=== PATIENT | male | born 1980 | race African-American/Black ===

== ENCOUNTER 2017-03-04 16:09 | Emergency (ER) | payer BC ==
[2017-03-04 16:46] LABS: #Basophils 0.1 thou/uL (0.0-0.2); #Eosinphils 0.1 thou/uL (0.0-0.7); #Lymphocytes 2.1 thou/uL (1.20-3.40); #Monocytes 0.6 thou/uL (0.11-0.59); %Eosinophils 1.3 % (0.0-10.0); %Lymphocytes 21.3 % (21.0-51.0); %Monocytes 6.1 % (0.0-10.0); %Neutrophils 70.3 % (42.0-75.0); Hemoglobin 15.3 g/dL (14.0-18.0); Mean Corpuscular HGB CONC 34.7 g/dL (32.0-36.0); Mean Corpuscular Hemoglobin 30.5 pg (27.0-31.0); Mean Corpuscular Volume 87.8 fl (80.0-94.0); Mean Platelet Volume 6.7 fL (7.4-10.4); Platelet Count 297 thou/uL (130-400); RBC Distribution Width 11.8 % (11.5-14.5); Red Blood Cell (RBC) Count 5.01 mill/uL (4.70-6.10)
[2017-03-04 17:03] LABS: ALT (SGPT) 31 U/L (8-55); AST (SGOT) 27 U/L (5-34); Albumin 4.2 g/dL (3.5-5.0); Alkaline Phosphatase 60 U/L (40-150); Anion Gap 16 mmol/L (10-20); BUN (Urea Nitrogen) 13 mg/dL (8.9-20.6); Bilirubin, Total 0.8 mg/dL (0.2-1.2); Calc. Creatinine Clearance 0 mL/min (70-130); Calcium 9.2 mg/dL (7.8-10.44); Carbon Dioxide 24 mmol/L (22-29); Chloride 104 mmol/L (98-107); Estimated GFR-MDRD Greater than 90; Globulin 2.6 g/dL (2.4-3.5); Glucose 229 mg/dL (70-105); Potassium 3.6 mmol/L (3.5-5.1); Protein, Total 6.8 g/dL (6.0-8.3); Sodium 140 mmol/L (136-145)
[2017-03-04 20:24] LABS: CRP (Inflammatory) Less than 0.50 mg/dL (= or < 0.5)
--- NOTE | 2017-03-04 22:13 | RAD ---
LEFT FOOT THREE VIEW 03/04/17 No fracture was seen. No area of bony destruction was present. Slight pes planus was noted. IMPRESSION: No acute bony finding. POS: HOME
== END 2017-03-04 17:55 | disposition home or self-care (01) ==
LOC: BURERS 16:09
DX: E11.621 Type 2 diabetes mellitus with foot ulcer (principal); L03.116 Cellulitis of left lower limb; Z79.84 Long term (current) use of oral hypoglycemic drugs; Z79.899 Other long term (current) drug therapy
CPT/HCPCS: 80053; 85025; 85652; 86140; 87040

== ENCOUNTER 2018-06-01 08:43 | Emergency (ER) | payer BC, SELFPAY ==
[2018-06-01] MEDS ORDERED: Piperacillin/Tazobactam 3.375 GM VIAL ONE (09:23)
[2018-06-01] MEDS ORDERED: Sodium Chloride 0.9% 100 ML ONE (09:24)
[2018-06-01 09:38] LABS: #Basophils 0.1 thou/uL (0.0-0.2); #Eosinphils 0.2 thou/uL (0.0-0.7); #Lymphocytes 1.6 thou/uL (1.20-3.40); #Monocytes 0.7 thou/uL (0.11-0.59); #Neutrophils 8.1 thou/uL (1.40-6.50); %Eosinophils 2.2 % (0.0-10.0); %Lymphocytes 14.7 % (21.0-51.0); %Monocytes 6.3 % (0.0-10.0); %Neutrophils 75.8 % (42.0-75.0); Hemoglobin 13.4 g/dL (14.0-18.0); Mean Corpuscular HGB CONC 34.2 g/dL (32.0-36.0); Mean Corpuscular Hemoglobin 28.2 pg (27.0-31.0); Mean Corpuscular Volume 82.3 fL (78.0-98.0); Mean Platelet Volume 6.3 fL (7.4-10.4); Platelet Count 568 thou/uL (130-400); RBC Distribution Width 10.7 % (11.5-14.5); Red Blood Cell (RBC) Count 4.77 mill/uL (4.70-6.10); White Blood Cell (WBC) Count 10.7 thou/uL (4.8-10.8)
[2018-06-01 09:53] LABS: ALT (SGPT) 27 U/L (8-55); AST (SGOT) 17 U/L (5-34); Alkaline Phosphatase 80 U/L (40-150); Anion Gap 12 mmol/L (10-20); BUN (Urea Nitrogen) 9 mg/dL (8.9-20.6); Bilirubin, Total 0.5 mg/dL (0.2-1.2); Calc. Creatinine Clearance 0 mL/min (70-130); Calcium 9.6 mg/dL (7.8-10.44); Carbon Dioxide 28 mmol/L (22-29); Chloride 103 mmol/L (98-107); Estimated GFR-MDRD Greater than 90; Globulin 3.7 g/dL (2.4-3.5); Glucose 246 mg/dL (70-105); Potassium 3.8 mmol/L (3.5-5.1); Protein, Total 7.7 g/dL (6.0-8.3); Sodium 139 mmol/L (136-145)
--- NOTE | 2018-06-01 11:45 | RAD ---
LEFT FOOT 3 VIEWS: Date: 06/01/18 Comparison is made with the prior study of 03/04/17. FINDINGS: In the interval, there has occurred an area of bony destruction in the distal end of the proximal pha lanx of the fourth toe. Osteomyelitis is presumed. Soft tissue swelling is seen in the forefoot. The other bony structures appeared intact. IMPRESSION: Osseous destruction of the distal end of the proximal phalanx of the fourth toe. Osteomyelitis is pre sumed given the clinical presentation. Findings discussed with Dr. Parra at approximately 0935 hours. CODE CR. POS: HOME
== END 2018-06-01 11:13 | disposition short-term general hospital (02) ==
LOC: BURERS 08:43
DX: L03.116 Cellulitis of left lower limb (principal); M86.9 Osteomyelitis, unspecified; E11.9 Type 2 diabetes mellitus without complications; I10 Essential (primary) hypertension; Z79.899 Other long term (current) drug therapy; Z79.84 Long term (current) use of oral hypoglycemic drugs
CPT/HCPCS: 36415; 80053; 83605; 85025; 87040; 96365; 96367; J2543; J3370; J7050

== ENCOUNTER 2019-03-26 16:27 | Emergency (ER) | payer OTHER, SELFPAY | END 2019-03-26 17:20 | disposition home or self-care (01) | LOC: BURERS 16:27 | DX: E11.65 Type 2 diabetes mellitus with hyperglycemia (principal); R51 Headache; I10 Essential (primary) hypertension; F17.210 Nicotine dependence, cigarettes, uncomplicated; Z79.84 Long term (current) use of oral hypoglycemic drugs; Z79.899 Other long term (current) drug therapy | CPT/HCPCS: 36416; 99284 ==

== ENCOUNTER 2021-11-07 07:28 | Emergency (ER) | payer OTHER ==
[2021-11-07] MEDS ORDERED: Cephalexin 250 MG CAP ONE (07:53)
[2021-11-07] MEDS ORDERED: Boostrix 0.5 ML (Tdap) VIAL ONE ×2 (07:54→08:04)
== END 2021-11-07 08:03 | disposition home or self-care (01) ==
LOC: BURERS 07:28
DX: E11.621 Type 2 diabetes mellitus with foot ulcer (principal); L97.518 Non-pressure chronic ulcer of other part of right foot with other specified severity; E11.42 Type 2 diabetes mellitus with diabetic polyneuropathy; I10 Essential (primary) hypertension; F17.210 Nicotine dependence, cigarettes, uncomplicated; Z23 Encounter for immunization; Z79.84 Long term (current) use of oral hypoglycemic drugs; Z79.899 Other long term (current) drug therapy
CPT/HCPCS: 90471; 90715